=== PATIENT | male | born 1945 | race Caucasian/White ===

== ENCOUNTER 2022-08-20 16:36 | Inpatient (IN) | payer OTHER, MEDICARE, MEDICAID ==
[~2022-08-20 16:36] MED LIST: Iopamidol-370 76% 500 ML 1 ML ONE
[2022-08-20 17:05] LABS: #Basophils 0.1 thou/uL (0.0-0.2); #Eosinphils 0.3 thou/uL (0.0-0.7); #Lymphocytes 2.1 thou/uL (1.20-3.40); #Neutrophils 8.9 thou/uL (1.40-6.50); %Basophils 0.5 % (0.0-1.0); %Eosinophils 2.2 % (0.0-10.0); %Lymphocytes 16.9 % (21.0-51.0); %Monocytes 8.5 % (0.0-10.0); %Neutrophils 72.1 % (42.0-75.0); Hemoglobin 14.5 g/dL (14.0-18.0); Mean Corpuscular Hemoglobin 31.6 pg (27.0-31.0); Mean Corpuscular Volume 98.8 fL (78.0-98.0); Mean Platelet Volume 8.6 fL (7.4-10.4); Platelet Count 205 thou/uL (130-400); RBC Distribution Width 12.6 % (11.5-14.5); White Blood Cell (WBC) Count 12.4 thou/uL (4.8-10.8)
[2022-08-20 17:30] LABS: ALT (SGPT) 52 U/L (8-55); AST (SGOT) 74 U/L (5-34); Albumin 4.2 g/dL (3.4-4.8); Alkaline Phosphatase 63 U/L (40-110); Anion Gap 14 mmol/L (10-20); BUN (Urea Nitrogen) 17 mg/dL (8.4-25.7); Bilirubin, Total 0.5 mg/dL (0.2-1.2); Calc. Creatinine Clearance 0 mL/min (70-130); Calcium 9.1 mg/dL (7.8-10.44); Carbon Dioxide 26 mmol/L (23-31); Chloride 107 mmol/L (98-107); Estimated GFR 89; Globulin 2.9 g/dL (2.4-3.5); Glucose 108 mg/dL (83-110); Lipase 30 U/L (8-78); Potassium 3.9 mmol/L (3.5-5.1); Protein, Total 7.1 g/dL (5.8-8.1); Sodium 143 mmol/L (136-145)
[2022-08-20] MEDS ORDERED: Morphine 2 MG/ML VIAL ONE (18:08)
[2022-08-20] MEDS ORDERED: Dextrose 5% in Water 1,000 ML IV PRN (18:23)
[2022-08-20] MEDS ORDERED: Ondansetron PF 4 MG/2 ML Vial IVP PRN (18:23)
[2022-08-20] MEDS ORDERED: Dextrose 50% Abboject 50 ML SYRINGE SLOW IVP PRN (18:23)
[2022-08-20] MEDS ORDERED: Ondansetron ODT 4 MG TAB PO PRN (18:23)
[2022-08-20] MEDS ORDERED: Rib Fracture Protocol PO PRN (18:30)
[2022-08-20] MEDS ORDERED: Cyclobenzaprine 10 MG TAB PO PRN (18:45)
[2022-08-20] MEDS ORDERED: Lactated Ringer's 1,000 ML IV SCH (18:45)
[2022-08-20] MEDS ORDERED: Morphine 4 MG/ML VIAL SLOW IVP PRN (18:46)
[2022-08-20 18:52] LABS: INR-International Normal Ratio 1.1; PTT 26.3 sec (22.9-36.1); Prothrombin Time 14.1 sec (12.0-14.7)
[2022-08-20 20:12] LABS: Lactic Acid 1.6 mmol/L (0.5-2.2)
[2022-08-20] MEDS ORDERED: Morphine 4 MG/ML VIAL ONE (20:14)
[2022-08-21 00:02] LABS: CKMB 15.2 ng/mL (0-6.6)
[2022-08-21] MEDS: Ketorolac Tromethamine 30 MG/ML VIAL IVP SCH ×2 (00:16→05:51)
[2022-08-21] MEDS: Famotidine 20 MG TAB PO SCH ×3 (00:26→21:51)
[2022-08-21] MEDS: Acetaminophen 500 MG TAB PO SCH ×5 (00:28→23:13)
[2022-08-21] MEDS: Gabapentin 100 MG CAP PO SCH ×4 (00:30→21:51)
[2022-08-21] MEDS: Ibuprofen 200 MG TAB PO SCH ×4 (00:31→21:53)
[2022-08-21] MEDS: Tamsulosin HCl 0.4 MG CAP PO SCH ×2 (00:32→21:49)
[2022-08-21] MEDS: traMADol HCl 50 MG TAB PO SCH ×5 (00:32→23:15)
[2022-08-21 02:14] LABS: SARS-CoV-2 NAA Rapid Test Not Detected (NotDetected)
[2022-08-21 04:54] VITALS: BMI 21.2
[2022-08-21 05:30] LABS: #Lymphocytes 1.1 thou/uL (1.20-3.40); #Monocytes 1.7 thou/uL (0.11-0.59); #Neutrophils 12.1 thou/uL (1.40-6.50); %Basophils 0.3 % (0.0-1.0); %Eosinophils 0.3 % (0.0-10.0); %Lymphocytes 7.3 % (21.0-51.0); %Monocytes 11.1 % (0.0-10.0); Hemoglobin 12.7 g/dL (14.0-18.0); Mean Corpuscular HGB CONC 31.7 g/dL (32.0-36.0); Mean Corpuscular Hemoglobin 31.4 pg (27.0-31.0); Mean Corpuscular Volume 99.2 fL (78.0-98.0); Mean Platelet Volume 8.3 fL (7.4-10.4); Platelet Count 173 thou/uL (130-400); RBC Distribution Width 12.8 % (11.5-14.5); Red Blood Cell (RBC) Count 4.05 mill/uL (4.70-6.10); White Blood Cell (WBC) Count 14.9 thou/uL (4.8-10.8)
[2022-08-21 06:13] LABS: Anion Gap 12 mmol/L (10-20); BUN (Urea Nitrogen) 18 mg/dL (8.4-25.7); Calc. Creatinine Clearance 62 mL/min (70-130); Calcium 8.8 mg/dL (7.8-10.44); Carbon Dioxide 26 mmol/L (23-31); Chloride 106 mmol/L (98-107); Estimated GFR 81; Glucose 142 mg/dL (83-110); Magnesium 2.3 mg/dL (1.6-2.6); Phosphorus 3.9 mg/dL (2.3-4.7); Potassium 3.8 mmol/L (3.5-5.1); Sodium 140 mmol/L (136-145)
[2022-08-21 07:20] LABS: CKMB 10.5 ng/mL (0-6.6)
[2022-08-21] MEDS ORDERED: TETANUS, DIPHTHERIA TOX,ADULT (TDVAX) 0.5 ML VIAL IM ONE (09:00)
[2022-08-22] MEDS: traMADol HCl 50 MG TAB PO SCH ×4 (05:25→19:56)
[2022-08-22] MEDS: Ibuprofen 200 MG TAB PO SCH ×3 (05:26→20:42)
[2022-08-22] MEDS: Acetaminophen 500 MG TAB PO SCH ×3 (05:28→17:05)
[2022-08-22 06:22] LABS: #Eosinphils 0.3 thou/uL (0.0-0.7); #Monocytes 1.3 thou/uL (0.11-0.59); #Neutrophils 8.4 thou/uL (1.40-6.50); %Basophils 0.4 % (0.0-1.0); %Eosinophils 2.9 % (0.0-10.0); %Lymphocytes 8.9 % (21.0-51.0); %Monocytes 11.3 % (0.0-10.0); %Neutrophils 76.5 % (42.0-75.0); Hemoglobin 11.7 g/dL (14.0-18.0); Mean Corpuscular HGB CONC 30.6 g/dL (32.0-36.0); Mean Corpuscular Hemoglobin 30.7 pg (27.0-31.0); Mean Platelet Volume 8.6 fL (7.4-10.4); Platelet Count 141 thou/uL (130-400); RBC Distribution Width 12.7 % (11.5-14.5); Red Blood Cell (RBC) Count 3.82 mill/uL (4.70-6.10)
[2022-08-22 06:42] LABS: Anion Gap 10 mmol/L (10-20); BUN (Urea Nitrogen) 19 mg/dL (8.4-25.7); Calc. Creatinine Clearance 66 mL/min (70-130); Calcium 8.6 mg/dL (7.8-10.44); Carbon Dioxide 30 mmol/L (23-31); Chloride 103 mmol/L (98-107); Estimated GFR 87; Glucose 107 mg/dL (83-110); Magnesium 2.2 mg/dL (1.6-2.6); Phosphorus 3.3 mg/dL (2.3-4.7); Potassium 3.2 mmol/L (3.5-5.1); Sodium 140 mmol/L (136-145)
[2022-08-22] MEDS: Famotidine 20 MG TAB PO SCH ×2 (08:11→20:43)
[2022-08-22] MEDS: Gabapentin 100 MG CAP PO SCH ×3 (08:11→20:43)
[2022-08-22] MEDS ORDERED: Potassium Chloride 20 MEQ TAB PO SCH (10:30)
[2022-08-22] MEDS: Tamsulosin HCl 0.4 MG CAP PO SCH (20:43)
[2022-08-23] MEDS: Acetaminophen 500 MG TAB PO SCH ×4 (00:04→17:43)
[2022-08-23] MEDS ORDERED: FLU VACC QS2022-23(65YR UP)/PF 240 MCG/0.7 ML SYRINGE IM ONE (05:00)
[2022-08-23] MEDS: Ibuprofen 200 MG TAB PO SCH ×3 (06:38→20:29)
[2022-08-23] MEDS: traMADol HCl 50 MG TAB PO SCH ×3 (06:39→17:44)
[2022-08-23] MEDS: Enoxaparin Sodium 40 MG/0.4 ML SYRINGE SC SCH (09:08)
[2022-08-23] MEDS: Gabapentin 100 MG CAP PO SCH ×3 (09:08→20:28)
[2022-08-23] MEDS: Famotidine 20 MG TAB PO SCH ×2 (09:08→20:28)
[2022-08-23] MEDS ORDERED: traMADol HCl 50 MG TAB PO PRN (15:53)
[2022-08-23 16:55] LABS: Anion Gap 10 mmol/L (10-20); BUN (Urea Nitrogen) 13 mg/dL (8.4-25.7); CK (CPK) 919 U/L (30-200); Calc. Creatinine Clearance 73 mL/min (70-130); Carbon Dioxide 32 mmol/L (23-31); Chloride 104 mmol/L (98-107); Estimated GFR 90; Glucose 115 mg/dL (83-110); Magnesium 2.1 mg/dL (1.6-2.6); Phosphorus 2.9 mg/dL (2.3-4.7); Potassium 3.8 mmol/L (3.5-5.1); Sodium 142 mmol/L (136-145)
[2022-08-23] MEDS: Tamsulosin HCl 0.4 MG CAP PO SCH (20:28)
[2022-08-24] MEDS: Acetaminophen 500 MG TAB PO SCH ×4 (00:20→17:44)
[2022-08-24] MEDS: traMADol HCl 50 MG TAB PO SCH ×5 (00:21→17:45)
[2022-08-24 05:56] LABS: #Basophils 0.1 thou/uL (0.0-0.2); #Eosinphils 0.5 thou/uL (0.0-0.7); #Lymphocytes 1.1 thou/uL (1.20-3.40); #Monocytes 1.7 thou/uL (0.11-0.59); #Neutrophils 9.7 thou/uL (1.40-6.50); %Basophils 0.5 % (0.0-1.0); %Lymphocytes 8.5 % (21.0-51.0); %Monocytes 12.8 % (0.0-10.0); %Neutrophils 74.1 % (42.0-75.0); Hemoglobin 13.1 g/dL (14.0-18.0); Mean Corpuscular HGB CONC 32.3 g/dL (32.0-36.0); Mean Corpuscular Hemoglobin 31.5 pg (27.0-31.0); Mean Corpuscular Volume 97.6 fL (78.0-98.0); Mean Platelet Volume 8.3 fL (7.4-10.4); Platelet Count 188 thou/uL (130-400); RBC Distribution Width 12.5 % (11.5-14.5); Red Blood Cell (RBC) Count 4.17 mill/uL (4.70-6.10)
[2022-08-24] MEDS: Ibuprofen 200 MG TAB PO SCH ×3 (06:42→21:09)
[2022-08-24] MEDS: Enoxaparin Sodium 40 MG/0.4 ML SYRINGE SC SCH (08:02)
[2022-08-24] MEDS: Bisacodyl 10 MG SUPP PR SCH (08:02)
[2022-08-24] MEDS: Famotidine 20 MG TAB PO SCH ×2 (08:03→21:09)
[2022-08-24] MEDS: Milk Of Magnesia 30 ML UDCUP PO SCH (08:04)
[2022-08-24] MEDS: Senokot S 8.6-50 MG TAB PO SCH ×2 (08:04→21:09)
[2022-08-24] MEDS: Gabapentin 100 MG CAP PO SCH ×3 (08:04→21:09)
[2022-08-24] MEDS: Polyethylene Glycol 3350 17 GM Packet PO SCH (08:04)
[2022-08-24 17:39] VITALS: TEMP 98.1
[2022-08-24] MEDS: GUAIFENESIN SF SOLN 200 MG/10 ML UDCUP PO PRN (17:44)
[2022-08-24] MEDS: Tamsulosin HCl 0.4 MG CAP PO SCH (21:09)
[2022-08-25] MEDS: traMADol HCl 50 MG TAB PO SCH ×2 (00:45→04:52)
[2022-08-25] MEDS: Acetaminophen 500 MG TAB PO SCH ×2 (00:45→05:38)
[2022-08-25] MEDS: Ibuprofen 200 MG TAB PO SCH (05:39)
[2022-08-25 08:21] VITALS: BP 122/77
[2022-08-25] MEDS: Bisacodyl 10 MG SUPP PR SCH (10:07)
[2022-08-25] MEDS: Gabapentin 100 MG CAP PO SCH (10:08)
[2022-08-25] MEDS: Enoxaparin Sodium 40 MG/0.4 ML SYRINGE SC SCH (10:08)
[2022-08-25] MEDS: Famotidine 20 MG TAB PO SCH (10:08)
[2022-08-25] MEDS: Senokot S 8.6-50 MG TAB PO SCH (10:09)
[2022-08-25] MEDS: Milk Of Magnesia 30 ML UDCUP PO SCH (10:09)
[2022-08-25] MEDS: Polyethylene Glycol 3350 17 GM Packet PO SCH (10:09)
[2022-08-25] MEDS: GUAIFENESIN SF SOLN 200 MG/10 ML UDCUP PO PRN (10:29)
== END 2022-08-25 11:00 | disposition home or self-care (01) | DRG 200 ==
LOC: ERS 16:36 → SURG A 18:28
PROVIDERS: ADMIT Surgery; ATTEND Surgery
DX: S27.0XXA Traumatic pneumothorax, initial encounter (principal); M62.82 Rhabdomyolysis; S22.20XA Unspecified fracture of sternum, initial encounter for closed fracture; S27.322A Contusion of lung, bilateral, initial encounter; S22.43XA Multiple fractures of ribs, bilateral, initial encounter for closed fracture; I65.22 Occlusion and stenosis of left carotid artery; R16.0 Hepatomegaly, not elsewhere classified; N40.0 Benign prostatic hyperplasia without lower urinary tract symptoms; G89.11 Acute pain due to trauma; R00.0 Tachycardia, unspecified; V43.52XA Car driver injured in collision with other type car in traffic accident, initial encounter; Z98.890 Other specified postprocedural states; Z80.3 Family history of malignant neoplasm of breast; Z80.7 Family history of other malignant neoplasms of lymphoid, hematopoietic and related tissues; Z20.822 Contact with and (suspected) exposure to COVID-19
CPT/HCPCS: 36415; 70450; 70498; 71045; 71260; 72125; 72170; 74177; 80048; 80053; 82550; 82553; 83605; 83690; 83735; 84100; 84484; 85025; 85610; 85730; 93005; 94640; 96374; 96376; G0390; J1885; J2270; J7120; J7620; Q9967; U0002